=== PATIENT | male | born 1950 | race Caucasian/White ===

== ENCOUNTER 2018-02-12 18:57 | Outpatient (CLI) | payer OTHER | END 2018-02-12 19:27 | disposition home or self-care (01) | LOC: LAB 18:57 | DX: J81.0 Acute pulmonary edema (principal); J10.89 Influenza due to other identified influenza virus with other manifestations; J11.1 Influenza due to unidentified influenza virus with other respiratory manifestations ==

== ENCOUNTER → 2021-06-30 | Outpatient (CLI) | payer OTHER | END | disposition home or self-care (01) | LOC: NUCLEAR 09:00 | DX: C02.4 Malignant neoplasm of lingual tonsil (principal); Z85.21 Personal history of malignant neoplasm of larynx | CPT/HCPCS: 78815; A9552 ==